=== PATIENT | female | born 1960 | race Two or more races ===

== ENCOUNTER → 2017-09-13 | Outpatient (CLI) | payer BC, OTHER ==
[~2017-09-13] MED LIST: GADOBUTROL 10 ML VIAL IVP ONE
== END ==
LOC: FIMAGING 06:39
PROVIDERS: ATTEND Internal Medicine Hematology & Oncology
DX: I81 Portal vein thrombosis (principal); K76.9 Liver disease, unspecified
CPT/HCPCS: A9585